=== PATIENT | female | born 1935 | race African-American/Black ===

== ENCOUNTER 2022-04-25 17:03 | Observation (INO) ==
[2022-04-25 17:46] LABS: Basophils % 0.6 % (0.0-0.8); Eosinophils # 0.1 10*3/uL (0.0-0.87); Eosinophils % 2.4 % (0.00-10.9); Hematocrit 32.8 VOL% (35.7-47.0); Immature Granulocytes % 0.2 %; Immature Granulocytes Absolute 0.01 #; Lymphocytes # 2.1 10*3/uL (1.4-4.0); Lymphocytes % 40.9 % (21.3-54.2); Mean Corpuscular HGB Conc 30.5 GM/DL (32-36); Mean Corpuscular Volume 82.8 FL (87-102); Mean Platelet Volume 10.4 FL (9.6-12.0); Monocytes # 0.7 10*3/uL (0.11-0.8); Monocytes % 14.6 % (1.7-12.7); Neutrophils % 41.3 % (38.7-73.9); Platelet Count 179 T/CUMM (130-400); Red Blood Count 3.96 MC/CUMM (3.8-5.5); Red Cell Distribution Width 17.6 % (9.3-17.3)
[2022-04-25 18:04] LABS: Alanine Aminotransferase 19 U/L (13-56); Albumin 3.2 G/DL (3.4-5.0); Alkaline Phosphatase 89 U/L (45-117); Aspartate Amino Transferase 17 U/L (0-37); Bilirubin,Total < 0.39 MG/DL (0.20-1.00); Blood Urea Nitrogen 63 MG/DL (7-18); Calcium 9.2 MG/DL (8.5-10.1); Carbon Dioxide 29 MMOL/L (21-32); Chloride 108 MMOL/L (98-107); Glucose 106 MG/DL (74-106); Potassium 5.2 MMOL/L (3.5-5.1); Sodium 143 MMOL/L (136-145); Total Protein 6.9 G/DL (6.4-8.2)
[2022-04-25 18:11] LABS: PT Patient Result 10.6 SECS (10.1-12.1)
[2022-04-25 18:34] LABS: Bacteria,Urine Occasional /HPF (Few); Bilirubin,Urine Negative (Negative); Blood, Urine Trace mg/dL (Negative); Glucose,Urine (UA) Negative (Negative); Hyaline Casts,Urine 1 /LPF (0-3); Ketones,Urine Negative (Negative); Mucus,Urine Occasional /LPF (Occasional); Nitrite,Urine Negative (Negative); Protein,Urine 100 mg/dL (Negative); RBC,Urine 6 /HPF (0-4); Squamous Epithelial Cell,Urine Occasional /HPF (0-10); Urine Appearance Clear (Clear); Urine Color Yellow (Yellow); Urine Specific Gravity 1.015 (1.001-1.035); Urine Urobilinogen 0.2 eU/dL (<2.0)
[2022-04-25] MEDS ORDERED: FUROSEMIDE 40 MG/4 ML VIAL IV STA (18:44)
[2022-04-25] MEDS ORDERED: hydrALAZINE 20 MG/1 ML VIAL IV STA (18:50)
[2022-04-25] MEDS ORDERED: ASPIRIN 325 MG TABLET PO STA (19:00)
[2022-04-25] MEDS ORDERED: LABETALOL 20 MG/4 ML SYRINGE IV STA (20:12)
[2022-04-25] MEDS ORDERED: hydrALAZINE 20 MG/1 ML VIAL IV PRN (20:12)
[2022-04-25] MEDS ORDERED: ONDANSETRON 4 MG/2 ML VIAL IV PRN (20:12)
[2022-04-25] MEDS: FUROSEMIDE 40 MG TABLET PO SCH (21:37)
[2022-04-25] MEDS: METOPROLOL TARTRATE 25 MG TABLET PO SCH (21:45)
[2022-04-25] MEDS: MEMANTINE 10 MG TABLET PO SCH (21:45)
[2022-04-26 03:41] LABS: Potassium 4.8 MMOL/L (3.5-5.1)
[2022-04-26 07:27] LABS: Mucus,Urine Occasional /LPF (Occasional); RBC,Urine 1232 /HPF (0-4); Squamous Epithelial Cell,Urine Occasional /HPF (0-10); Urine Color Light Red (Yellow)
[2022-04-26 07:28] LABS: Bilirubin,Urine Negative (Negative); Blood, Urine Large mg/dL (Negative); Glucose,Urine (UA) Negative (Negative); Ketones,Urine Negative (Negative); Nitrite,Urine Negative (Negative); Protein,Urine 30 mg/dL (Negative); Urine Appearance Cloudy (Clear); Urine Specific Gravity 1.015 (1.001-1.035); Urine Urobilinogen 0.2 eU/dL (<2.0); Urine pH 5.5 (4.5-8.0)
[2022-04-26 08:26] LABS: Basophils % 0.2 % (0.0-0.8); Eosinophils # 0.1 10*3/uL (0.0-0.87); Eosinophils % 2.1 % (0.00-10.9); Hematocrit 30.7 VOL% (35.7-47.0); Hemoglobin 9.4 GM/DL (12.0-16.0); Immature Granulocytes % 0.4 %; Immature Granulocytes Absolute 0.02 #; Lymphocytes # 1.8 10*3/uL (1.4-4.0); Lymphocytes % 36.9 % (21.3-54.2); Mean Corpuscular HGB Conc 30.6 GM/DL (32-36); Mean Corpuscular Volume 82.5 FL (87-102); Mean Platelet Volume 11.5 FL (9.6-12.0); Monocytes # 0.6 10*3/uL (0.11-0.8); Monocytes % 13.3 % (1.7-12.7); Neutrophils % 47.1 % (38.7-73.9); Platelet Count 178 T/CUMM (130-400); Red Blood Count 3.72 MC/CUMM (3.8-5.5); Red Cell Distribution Width 17.8 % (9.3-17.3); White Blood Count 4.7 T/CUMM (4-12)
[2022-04-26] MEDS ORDERED: ENOXAPARIN 40 MG/0.4 ML SYRINGE SUBCUT SCH (09:00)
[2022-04-26] MEDS ORDERED: DONEPEZIL 5 MG TABLET PO SCH (09:00)
[2022-04-26] MEDS ORDERED: PANTOPRAZOLE 40 MG TABLET PO SCH (09:00)
[2022-04-26] MEDS ORDERED: CLOPIDOGREL 75 MG TABLET PO SCH (09:00)
[2022-04-26] MEDS ORDERED: SERTRALINE 25 MG TABLET PO SCH (09:00)
[2022-04-26] MEDS: MEMANTINE 10 MG TABLET PO SCH (09:12)
[2022-04-26] MEDS: FUROSEMIDE 40 MG TABLET PO SCH (09:12)
[2022-04-26] MEDS: METOPROLOL TARTRATE 25 MG TABLET PO SCH (09:12)
[2022-04-26 12:28] VITALS: BP 157/69
== END 2022-04-26 15:10 ==
LOC: N.ED 17:03 → N.EDINP 17:03 → SUATTDRO 20:04 → N.2W 04-26 09:09
PROVIDERS: ADMIT Family Medicine; ATTEND Emergency Medicine